=== PATIENT | male | born 1985 | race Caucasian/White ===

== ENCOUNTER 2019-01-17 04:47 | Day surgery (SDC) | payer OTHER ==
--- NOTE | 2019-01-17 05:43 | EDPHY ---
H & P Stated Complaint: plug in rectum Time Seen by Provider: 01/17/19 05:12 HPI/ROS: Chief Complaint: Rectal foreign body HPI: 33-year-old male was using a silicone, teardrop shaped sexual pleasure device with his partner this morning. Patient fell sleep with it in his rectum. He woke up and was not able to find it. Patient believes that it is in his rectum. No pain. No other complaints at this time. ROS: 10 systems were reviewed and were negative except those elements noted in the HPI. PMH: Denies Social History: No smoking, no alcohol, no recreational drug use Family History: non-contributory Physical Exam: Gen: Awake, Alert, No Distress HEENT: Nose: no rhinorrhea Eyes: PERRLA, EOMI Mouth: Moist mucosa Neck: Supple, no JVD Chest: nontender, lungs clear to auscultation Heart: S1, S2 normal, no murmur Abd: Soft, non-tender, no guarding Rectal: No foreign body noted, normal exam Back: no CVA tenderness, no midline tenderness Ext: no edema, non-tender Skin: no rash Neuro: CN II-XII intact, Sensation grossly intact, Strength 5/5 in bilateral upper and lower extremities - Personal History Current Tetanus/Diphtheria Vaccine: Yes Current Tetanus Diphtheria and Acellular Pertussis (TDAP): Yes - Medical/Surgical History Hx Asthma: No Hx Chronic Respiratory Disease: No Hx Diabetes: No Hx Cardiac Disease: No Hx Renal Disease: No Hx Cirrhosis: No Hx Alcoholism: No Hx HIV/AIDS: No Hx Splenectomy or Spleen Trauma: No Other PMH: HERNIATED DISCS L4-L5 - Social History Smoking Status: Never smoked Constitutional: Initial Vital Signs Temperature (C) 37.5 C 01/17/19 04:54 Heart Rate 95 01/17/19 04:54 Respiratory Rate 16 01/17/19 04:54 Blood Pressure 150/91 H 01/17/19 04:54 O2 Sat (%) 99 01/17/19 04:54 O2 Delivery Mode Room Air Allergies/Adverse Reactions: No Known Allergies Allergy (Unverified 01/17/19 04:53) Home Medications: Medication Instructions Recorded Estradiol 01/17/19 Gabapentin 01/17/19 Spironolactone 01/17/19 Medical Decision Making ED Course/Re-evaluation: Case discussed with Dr. Shay, general surgery. He will plan on taking the patient to the operating room for foreign body removal. Departure - Departure Disposition: [facility] Inpatient Acute Clinical Impression: Rectal foreign body Condition: Fair Referrals: NONE *PRIMARY CARE P,. [Primary Care Provider] - As per Instructions
--- NOTE | 2019-01-17 06:14 | POSTANESTH ---
Post Anesthetic Evaluation Cardiovascular Status: Normal, Stable Respiratory Status: Normal, Stable Level of Consciousness/Mental Status: Can Participate in Eval, Alert and Oriented Pain Control: Adequate, Prn Tx Ordered Nausea/Vomiting Control: Adequate, Prn Tx Ordered Complications Possibly Related to Anesthesia: Other, See Comments (Sore throat.)
--- NOTE | 2019-01-17 06:17 | PDANEPAE ---
ANE History of Present Illness 33 yo male for rectal foreign body removal. ANE Past Medical History - Cardiovascular History Hx Hypertension: No Hx Arrhythmias: No Hx Chest Pain: No Hx Coronary Artery / Peripheral Vascular Disease: No Hx CHF / Valvular Disease: No Hx Palpitations: No - Pulmonary History Hx COPD: No Hx Asthma/Reactive Airway Disease: No Hx Recent Upper Respiratory Infection: No Hx Oxygen in Use at Home: No Hx Sleep Apnea: No - Endocrine History Hx Diabetes: No Hypothyroid: No Hyperthyroid: No Obesity: no - Renal History Hx Renal Disorders: No - Liver History Hx Hepatic Disorders: No - Cancer History Hx Cancer: No - GI History Hx Gastrointestinal Disorders: No - Other Health History Other Health History: in gender transition - Chronic Pain History Chronic Pain: Yes (R leg pain from L4 and L5 herniated discs on Neurontin) ANE Review of Systems Review of Systems: - Systems Constitutional: Reports: no symptoms Cardiac: Reports: no symptoms Respiratory: Reports: no symptoms ANE Patient History - Allergies Allergies/Adverse Reactions: No Known Allergies Allergy (Unverified 01/17/19 04:53) - Home Medications Home Medications: Estradiol 01/17/19 [Last Taken Unknown] Gabapentin 01/17/19 [Last Taken Unknown] Spironolactone 01/17/19 [Last Taken Unknown] - NPO status NPO Since - Liquids (Date): 01/16/19 NPO Since - Liquids (Time): 20:30 NPO Since - Solids (Date): 01/16/19 NPO Since - Solids (Time): 17:00 - Anes Hx Anes Hx: no prior problems - Smoking Hx Smoking Status: Never smoked Marijuana use: Yes - Alcohol Use Alcohol Use: None - Family Anes Hx Family Anes Hx: neg - N/A ANE Labs/Vital Signs - Vital Signs Blood Pressure: 133/82 Heart Rate: 90 Respiratory Rate: 18 O2 Sat (%): 98 Height: 182.88 cm Weight: 95.254 kg ANE Physical Exam - Airway Neck exam: FROM Mallampati Score: Class 2 Mouth exam: normal dental/mouth exam - Pulmonary Pulmonary: clear to auscultation - Cardiovascular Cardiovascular: regular rate and rhythym - ASA Status ASA Status: II, E ANE Anesthesia Plan Anesthesia Plan: general endotracheal anesthesia
--- NOTE | 2019-01-17 06:17 | GDS ---
[f rep st] TRANSFER SUMMARY CHIEF COMPLAINT: Rectal foreign body. PRESENT ILLNESS: 33-year-old male presents with a 3-1/2 inch rectal foreign body, subtle but visible on the plain films. Attempts by the emergency room physician to extract this were unsuccessful. ALLERGIES: None. CURRENT MEDICATIONS: Estradiol 2 mg daily (patient undergoing gender transformation), spironolactone , gabapentin 600 q.p.m. REVIEW OF SYSTEMS: Patient is currently suffering from some disk herniation with pain in the right l eg. Otherwise, denies asthma, heart trouble, epilepsy, rheumatic fever. SOCIAL HISTORY: Nonsmoker. No alcohol use. 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 PREVIOUS SURGERY: Infantile hernia repair. PHYSICAL EXAMINATION: GENERAL: Pleasant male in minimal distress. HEENT: Within normal limits. L UNGS: Clear. HEART: Normal S1, S2, without murmur. ABDOMEN: Soft, benign. No rebound. No audelia s. EXTREMITIES: Unremarkable. ASSESSMENT: Retained rectal foreign body, silicone. This device is somewhat egg-shaped with a sligh tly tapered end. It could be difficult to engage from a rectal approach. The risks and benefits of extraction were explained to the patient including the potential that he will need a laparotomy. He understands and is anxious to proceed. /[id number]/MODL
[2019-01-17] MEDS ORDERED: DEXAMETHASONE 4 MG/ML VIAL ONE (06:21)
[2019-01-17] MEDS ORDERED: LIDOCAINE 2% 5 ML SDV ONE ×2 (06:21→06:50)
[2019-01-17] MEDS ORDERED: fentaNYL 100 MCG/2 ML INJ ONE (06:22)
[2019-01-17] MEDS ORDERED: PROPOFOL 200 MG/20 ML VIAL ONE ×2 (06:23)
[2019-01-17] MEDS ORDERED: SUCCINYLCHOLINE CHLORIDE 200 MG/10 ML SYR IVP ONE (06:50)
[2019-01-17] MEDS ORDERED: KETOROLAC 30 MG/1 ML SDV ONE (06:54)
--- NOTE | 2019-01-17 07:14 | POSTOPPROG ---
Post Op Note Date of Operation: 01/17/19 Surgeon: Inocencio Shay Pre-op Diagnosis: redtal foreign body Post-op Diagnosis: normal rectal exam Indication: foreing bocy Procedure: eua Inf/Abcess present in the surg proc area at time of surgery?: No
--- NOTE | 2019-01-17 07:22 | GHP ---
[f rep st] PREOP HISTORY AND PHYSICAL DATE OF ADMISSION: 01/17/2019 PREOPERATIVE DIAGNOSIS: Rectal foreign body. POSTOPERATIVE DIAGNOSIS: Rectal foreign body. OPERATION: Exam under anesthesia. INDICATION: Patient, 33-year-old male, who states he lost a sex toy in his rectum during the night. He describes it as 3 and 1/2 inches by 1 and 1/2 inches, and showed me a picture which was a silasti c object, no batteries, no metal. I felt I could see the object on x-ray faintly. PROCEDURE IN DETAIL: Patient was positioned in stirrups. General anesthesia. Perineum prepped with Betadine. Digital rectal exam could not identify an object. Palpation from the abdomen showed the bladder to be quite full. A Gomes catheter was placed and 750 mL of urine drained. With this, the a bdomen could be palpated quite deeply, and I could not engage any foreign body. Given that I was not 100% convinced that there indeed is a foreign body. I did not feel it was appropriate to do a lapar otomy at this time. Patient is awakened. We will get a CT scan with rectal contrast, and see if any thing actually is present prior to doing any other interventions. /[id number]/MODL
[2019-01-17] MEDS ORDERED: fentaNYL 100 MCG/2 ML INJ IVP PRN (07:35)
[2019-01-17] MEDS ORDERED: NALOXONE HCL 0.4 MG/ML INJ IVP PRN (07:35)
[2019-01-17] MEDS ORDERED: LR 500 ML IV PRN (07:35)
[2019-01-17] MEDS ORDERED: PROMETHAZINE HCL 25 MG/ML INJ IVP PRN (07:35)
[2019-01-17] MEDS ORDERED: LR 1,000 ML IV SCH (08:00)
--- NOTE | 2019-01-17 08:31 | SOAPPROG ---
SOAP Progress Note Assessment/Plan: Assessment: pt doing well/ ct shows no evidence of rectal foreign body or complications Plan:home/ fu prn 01/17/19 08:30 Objective: Vital Signs Temp Pulse Resp BP Pulse Ox 36.8 C 90 14 129/95 H 100 01/17/19 07:13 01/17/19 06:17 01/17/19 07:11 01/17/19 07:11 01/17/19 07:11 01/16/19 01/17/19 01/18/19 05:59 05:59 05:59 Intake Total 0 350 Balance 0 350 ICD10 Worksheet Patient Problems: Problems Problem Status Onset Rectal foreign body Acute
[2019-01-17 09:17] VITALS: BP 132/94
== END 2019-01-17 09:00 | disposition left against medical advice (07) ==
LOC: FSGY 05:49
PROVIDERS: ATTEND Surgery
PROC: 0DJD8ZZ Inspection of Lower Intestinal Tract, Via Natural or Artificial Opening Endoscopic (ICD-10-PCS; principal; 2019-01-17 06:15)
DX: T18.5XXA Foreign body in anus and rectum, initial encounter (principal); M51.16 Intervertebral disc disorders with radiculopathy, lumbar region
CPT/HCPCS: J0330; J1100; J1885; J2704; J3010